=== PATIENT | male | born 1955 | race Caucasian/White ===

== ENCOUNTER 2020-07-28 11:12 | Emergency (ER) | payer OTHER ==
--- NOTE | 2020-07-28 12:05 | EDM.PDOC ---
ED HPI GENERAL MEDICAL PROBLEM - General Chief Complaint: General Stated Complaint: COVID SYMPTOMS / EMPHYSEMA Time Seen by Provider: 07/28/20 11:15 Source of Information: Reports: Patient History Limitations: Reports: No Limitations - History of Present Illness INITIAL COMMENTS - FREE TEXT/NARRATIVE: Patient is a 64 y/o male who presents for COVID testing. He started having f zunilda last night (101), chills, sweats, fatigue, and cough. He has been able to keep things down and denies any N/V/D. No exposure to anyone with COVID that he knows of. ED ROS GENERAL - Review of Systems Review Of Systems: See Below Constitutional: Reports: Fever, Chills, Fatigue, Night Sweats HEENT: Reports: No Symptoms Respiratory: Reports: Shortness of Breath, Cough Cardiovascular: Reports: No Symptoms Endocrine: Reports: No Symptoms GI/Abdominal: Reports: No Symptoms : Reports: No Symptoms Skin: Reports: No Symptoms Neurological: Reports: No Symptoms ED EXAM, GENERAL - Physical Exam Exam: See Below Exam Limited By: No Limitations General Appearance: Alert, No Apparent Distress Nose: Normal Inspection, Normal Mucosa, No Blood Head: Atraumatic, Normocephalic Neck: Normal Inspection Respiratory/Chest: No Respiratory Distress, No Accessory Muscle Use Neurological: Alert, Oriented, Normal Cognition, Normal Gait Psychiatric: Normal Affect, Normal Mood Skin Exam: Warm, Dry, Intact, Normal Color, No Rash Course - Orders/Labs/Meds Orders: Active Orders 24 hr Category Date Time Status CORONAVIRUS COVID-19 RAPID [MOLEC] Stat Lab 07/28/20 11:20 Ordered Departure - Departure Time of Disposition: 12:05 Disposition: Home, Self-Care 01 Condition: Good Clinical Impression: Fever Qualifiers: Fever type: unspecified Qualified Code(s): R50.9 - Fever, unspecified - Discharge Information *PRESCRIPTION DRUG MONITORING PROGRAM REVIEWED*: Not Applicable *COPY OF PRESCRIPTION DRUG MONITORING REPORT IN PATIENT YAMIA: Not Applicable - My Orders Last 24 Hours: My Active Orders 07/28/20 11:20 CORONAVIRUS COVID-19 RAPID [MOLEC] Stat - Assessment/Plan Last 24 Hours: My Active Orders 07/28/20 11:20 CORONAVIRUS COVID-19 RAPID [MOLEC] Stat Plan: Patient refusing any additional work up after finding out COVID test was negative. I saw patient out in the parking lot initially with nurse and didn't do a full exam. Patient wants to go home and doesn't want to be seen. I encouraged patient to come back for fever >102, unable to tolerate fluids, difficulty breathing/swallowing, and/or persistent/worsening symptoms. Patient doesn't appear SOB or in any distress.
== END 2020-07-28 11:50 | disposition home or self-care (01) ==
LOC: LB.ED 11:12
DX: R50.9 Fever, unspecified (principal); R53.83 Other fatigue; R06.02 Shortness of breath; R05 Cough; Z20.828 Contact with and (suspected) exposure to other viral communicable diseases
CPT/HCPCS: 99283; U0002

== ENCOUNTER 2024-01-22 14:14 | Inpatient (IN) | payer OTHER ==
[2024-01-22] MEDS ORDERED: Sodium Chloride 0.9% 10 ML Syringe FLUSH PRN (14:32)
[2024-01-22 15:05] LABS: HEMOGLOBIN 7.4 g/dL (13.0-18.0); MEAN CORPUSCULAR HGB CONC 33.6 g/dL (31.0-35.0); MEAN PLATELET VOLUME 9.7 fL (6.0-10.0); RED BLOOD CELL COUNT 2.47 M/uL (4.50-6.50); RED CELL DISTRIBUTION WIDTH 13.7 % (11.0-16.0); WHITE BLOOD CELL COUNT,WBC 18.7 K/uL (4.0-11.0)
[2024-01-22] MEDS: LORazepam 2 MG/ML SDV IVPUSH ONE ×2 (15:21→15:24)
[2024-01-22] MEDS: Morphine 4 MG/ML VIAL IVPUSH ONE ×2 (15:22→15:51)
[2024-01-22 15:33] LABS: A/G RATIO 0.4 (0.8-2.0); ALBUMIN 0.8 g/dL (3.4-5.0); ALKALINE PHOSPHATASE 27 U/L (46-116); ASPARTATE AMNIOTRANSFERASE,AST 7 U/L (15-37); BILIRUBIN TOTAL 0.5 mg/dL (0.0-1.0); BLOOD UREA NITROGEN,BUN 19 mg/dL (8-26); BUN/CREATININE RATIO 15.7 (6-25); CREATININE 1.21 mg/dL (0.70-1.30); ESTIMATED GFR 66 mL/min (>60); GLUCOSE RANDOM 52 mg/dL (74-100); PHOSPHORUS 1.7 mg/dL (2.5-4.9); PRO B-TYPE NATRIUR PEPT,BNPPRO 2917 pg/mL (0-125); PROTEIN TOTAL,TP 2.7 g/dL (6.4-8.2); SODIUM,NA 149 mmol/L (136-145); TROPONIN I HIGH SENSITIVITY 10.2 pg/ml (<=60.4)
[2024-01-22] MEDS: Vancomycin 1 GM in Sodium Chloride 0.9% 100 ML IV ONE (15:41)
[2024-01-22] MEDS: Albuterol 0.083% 2.5 MG/3 ML Neb Soln ONE (15:47)
[2024-01-22] MEDS: Albuterol 0.083% 2.5 MG/3 ML Neb Soln NEB ONE ×2 (15:47→15:51)
[2024-01-22] MEDS: Morphine 4 MG/ML VIAL ONE (16:10)
[2024-01-22] MEDS: Heparin Sodium/D5W 25,000 UNITS/500 ML BAG IV SCH (16:14)
[2024-01-22 16:22] LABS: BASE EXCESS ARTERIAL -8.2 (-2-2); BICARBONATE,ARTERIAL 16.5 mmol/L (22-26); O2 SATURATION ARTERIAL 97.7 % (95-98); PCO2 ARTERIAL 26.1 mmHg (35-45); PO2 ARTERIAL 95.9 mmHg (80-105)
[2024-01-22] MEDS: methylPREDNISolone Sodium Succinate 125 MG/2 ML SDV IVPUSH ONE (16:29)
[2024-01-22 16:32] LABS: LACTIC ACID 7.8 mmol/L (0.4-2.0)
[2024-01-22] MEDS: Heparin Sodium/D5W 500 ML ONE (16:35)
[2024-01-22] MEDS: Heparin Sodium 1,000 Units/ML 10 ML MDV ONE (16:35)
[2024-01-22] MEDS: methylPREDNISolone Sodium Succinate 125 MG/2 ML SDV ONE (16:36)
[2024-01-22] MEDS: Piperacillin/Tazobactam 4.5 GM in Sodium Chloride 0.9% 100 ML IV ONE (16:41)
[2024-01-22] MEDS: Budesonide 0.5 MG/2 ML Neb Susp NEB ONE (16:43)
[2024-01-22 16:46] LABS: CHLORIDE,CL 121 mmol/L (98-107); POTASSIUM,K 1.6 mmol/L (3.5-5.1)
[2024-01-22 16:49] LABS: ANION GAP 20.6 mmol/L (5.0-15.0)
[2024-01-22] MEDS: Potassium Chloride Riders 10 MEQ in Premix Bag 1 BAG IV ONE ×3 (17:15→19:25)
[2024-01-22] MEDS: Iopamidol 612 MG/ML 100 ML Bottle IV SCH (17:18)
[2024-01-22] MEDS: Sodium Chloride 0.9% 50 ML SDV FLUSH ONE (17:18)
[2024-01-22] MEDS: Potassium Chloride Riders 50 ML ONE ×3 (17:34→19:29)
[2024-01-22] MEDS: Budesonide 0.5 MG/2 ML Neb Susp ONE (17:34)
[2024-01-22 17:41] LABS: INFLUENZA A NAA NEGATIVE (NEGATIVE); INFLUENZA B NAA NEGATIVE (NEGATIVE); RESPIRATORY SYNCYTIAL VIR NAA NEGATIVE (NEGATIVE)
[2024-01-22 17:43] LABS: CORONAVIRUS COVID-19 NAA NEGATIVE (NEGATIVE)
[2024-01-22] MEDS ORDERED: Albuterol/Ipratropium 3.0-0.5 MG/3 ML Neb Soln NEB SCH (17:45)
[2024-01-22] MEDS: Albuterol/Ipratropium 3.0-0.5 MG/3 ML Neb Soln NEB SCH (17:47)
[2024-01-22] MEDS: Albuterol/Ipratropium 3.0-0.5 MG/3 ML Neb Soln ONE (18:11)
[2024-01-22] MEDS: Sodium Chloride 0.9% 1,000 ML IV SCH (18:17)
[2024-01-22] MEDS: Ketorolac 30 MG/ML SDV IM ONE (18:23)
[2024-01-22] MEDS: Ketorolac 30 MG/ML SDV ONE (18:26)
[2024-01-22 18:35] LABS: CALCIUM < 5.0 mg/dL (8.5-10.1)
[2024-01-22 18:36] LABS: ALANINE AMINOTRANSFERASE,ALT < 6 U/L (12-78)
[2024-01-22 18:41] LABS: MAGNESIUM 0.5 mg/dL (1.8-2.4)
[2024-01-22 18:52] LABS: AMPHETAMINES SCREEN, URINE NEGATIVE (NEGATIVE); BARBITURATE SCREEN,URINE NEGATIVE (NEGATIVE); BENZODIAZEPINES SCREEN,URINE NEGATIVE (NEGATIVE); METHADONE SCREEN, URINE NEGATIVE (NEGATIVE); METHAMPHETAMINES SCREEN, URINE NEGATIVE (NEGATIVE); OXYCODONE SCREEN,URINE NEGATIVE (NEGATIVE); THC SCREEN,URINE 50 NG/ML POSITIVE (NEGATIVE)
[2024-01-22] MEDS: NS with KCl 40mEq 1,000 ML IV SCH (20:26)
[2024-01-22 21:14] LABS: ANION GAP 19.9 mmol/L (5.0-15.0); CALCIUM 7.7 mg/dL (8.5-10.1); CARBON DIOXIDE,CO2 20.5 mmol/L (21.0-32.0); POTASSIUM,K 4.4 mmol/L (3.5-5.1)
[2024-01-22 21:22] LABS: EST CRCL DRUG DOSING (CG) 19.1 mL/min
[2024-01-22 21:24] LABS: CREATININE 3.68 mg/dL (0.70-1.30)
[2024-01-22] MEDS: Albuterol 0.083% 2.5 MG/3 ML Neb Soln NEB SCH (21:45)
[2024-01-22] MEDS ORDERED: Norepinephrine 4 MG in Dextrose 5% in Water 246 ML IV SCH (23:45)
[2024-01-23] MEDS ORDERED: Norepinephrine 4 MG in Dextrose 5% in Water 246 ML IV SCH ×2 (00:07→02:00)
[2024-01-23] MEDS: Norepinephrine 4 MG in Dextrose 5% in Water 246 ML IV SCH (00:07)
[2024-01-23] MEDS: Piperacillin/Tazobactam 4.5 GM in Sodium Chloride 0.9% 100 ML IV SCH (04:40)
[2024-01-23 09:22] LABS: HEMATOCRIT 33.8 % (40.0-54.0); HEMOGLOBIN 11.4 g/dL (13.0-18.0); MEAN CORPUSCULAR HEMOGLOBIN 29.4 pg (27.0-32.0); MEAN CORPUSCULAR HGB CONC 33.7 g/dL (31.0-35.0); MEAN PLATELET VOLUME 10.2 fL (6.0-10.0); RED BLOOD CELL COUNT 3.88 M/uL (4.50-6.50); RED CELL DISTRIBUTION WIDTH 14.4 % (11.0-16.0)
[2024-01-23 09:24] LABS: WHITE BLOOD CELL COUNT,WBC 22.8 K/uL (4.0-11.0)
[2024-01-23 09:34] LABS: ANION GAP 15.1 mmol/L (5.0-15.0); BUN/CREATININE RATIO 17.9 (6-25); CALCIUM 7.7 mg/dL (8.5-10.1); CARBON DIOXIDE,CO2 22.4 mmol/L (21.0-32.0); CREATININE 1.95 mg/dL (0.70-1.30); EST CRCL DRUG DOSING (CG) 34.84 mL/min; MAGNESIUM 2.7 mg/dL (1.8-2.4); POTASSIUM,K 4.5 mmol/L (3.5-5.1); TROPONIN I HIGH SENSITIVITY 37.8 pg/ml (<=60.4)
[2024-01-23 10:01] LABS: PHOSPHORUS 4.1 mg/dL (2.5-4.9)
[2024-01-23 15:28] LABS: HEMATOCRIT 32.8 % (40.0-54.0); HEMOGLOBIN 11.1 g/dL (13.0-18.0); MEAN CORPUSCULAR HEMOGLOBIN 29.5 pg (27.0-32.0); MEAN CORPUSCULAR HGB CONC 33.8 g/dL (31.0-35.0); MEAN PLATELET VOLUME 10.2 fL (6.0-10.0); RED BLOOD CELL COUNT 3.76 M/uL (4.50-6.50); RED CELL DISTRIBUTION WIDTH 14.4 % (11.0-16.0); WHITE BLOOD CELL COUNT,WBC 18.3 K/uL (4.0-11.0)
[2024-01-23 15:44] LABS: ANION GAP 13.3 mmol/L (5.0-15.0); BUN/CREATININE RATIO 18.7 (6-25); CALCIUM 7.9 mg/dL (8.5-10.1); CARBON DIOXIDE,CO2 22.6 mmol/L (21.0-32.0); CREATININE 1.66 mg/dL (0.70-1.30); EST CRCL DRUG DOSING (CG) 40.93 mL/min; POTASSIUM,K 3.9 mmol/L (3.5-5.1)
[2024-01-23] MEDS: Ketorolac 30 MG/ML SDV IVPUSH ONE (23:15)
[2024-01-24] MEDS: Omeprazole 20 MG Cap.CR PO SCH (07:51)
[2024-01-24 07:59] LABS: HEMATOCRIT 33.1 % (40.0-54.0); HEMOGLOBIN 11.1 g/dL (13.0-18.0); MEAN CORPUSCULAR HGB CONC 33.5 g/dL (31.0-35.0); MEAN PLATELET VOLUME 10.5 fL (6.0-10.0); RED BLOOD CELL COUNT 3.83 M/uL (4.50-6.50); RED CELL DISTRIBUTION WIDTH 14.4 % (11.0-16.0); WHITE BLOOD CELL COUNT,WBC 18.3 K/uL (4.0-11.0)
[2024-01-24 08:05] LABS: ANION GAP 16.2 mmol/L (5.0-15.0); CALCIUM 7.6 mg/dL (8.5-10.1); CARBON DIOXIDE,CO2 19.7 mmol/L (21.0-32.0); CREATININE 1.2 mg/dL (0.70-1.30); EST CRCL DRUG DOSING (CG) 56.61 mL/min; POTASSIUM,K 3.9 mmol/L (3.5-5.1)
[2024-01-24] MEDS ORDERED: VANCOmycin 1.5 GM/300 ML 300 ML IV SCH (12:00)
[2024-01-24] MEDS: Simvastatin 40 MG Tab PO SCH (20:00)
[2024-01-24] MEDS: Simvastatin 20 MG Tab PO SCH (22:48)
[2024-01-25] MEDS ORDERED: Ketorolac 10 MG Tab PO PRN (00:26)
[2024-01-25] MEDS: Ketorolac 10 MG Tab ONE (00:53)
[2024-01-25 09:12] LABS: HEMATOCRIT 36.2 % (40.0-54.0); HEMOGLOBIN 12.2 g/dL (13.0-18.0); MEAN CORPUSCULAR HEMOGLOBIN 29.3 pg (27.0-32.0); MEAN CORPUSCULAR HGB CONC 33.7 g/dL (31.0-35.0); MEAN PLATELET VOLUME 10.7 fL (6.0-10.0); RED BLOOD CELL COUNT 4.17 M/uL (4.50-6.50); RED CELL DISTRIBUTION WIDTH 14.6 % (11.0-16.0); WHITE BLOOD CELL COUNT,WBC 16.7 K/uL (4.0-11.0)
[2024-01-25] MEDS ORDERED: Albuterol 0.083% 2.5 MG/3 ML Neb Soln NEB PRN (09:26)
== END 2024-01-25 12:55 | disposition home or self-care (01) | DRG 871 ==
LOC: LB.ED 14:14 → UNDOADMIN 21:35 → LB.MS 21:35 → UNDOADMIN 21:39 → EEVIPCON 21:39 → LB.MS 21:39 → UNDOADMIN 01-24 11:15 → LB.MS 01-24 11:15
PROVIDERS: ADMIT Surgery; ATTEND Surgery
PROC: 3E03329 Introduction of Other Anti-infective into Peripheral Vein, Percutaneous Approach (ICD-10-PCS; principal; 2024-01-22)
PROC: 5A09357 Assistance with Respiratory Ventilation, Less than 24 Consecutive Hours, Continuous Positive Airway Pressure (ICD-10-PCS; 2024-01-22)
PROC: 3E033XZ Introduction of Vasopressor into Peripheral Vein, Percutaneous Approach (ICD-10-PCS; 2024-01-22)
PROC: 4A033R1 Measurement of Arterial Saturation, Peripheral, Percutaneous Approach (ICD-10-PCS; 2024-01-22)
DX: A41.9 Sepsis, unspecified organism (principal); J18.9 Pneumonia, unspecified organism; I95.89 Other hypotension; J69.0 Pneumonitis due to inhalation of food and vomit; R65.21 Severe sepsis with septic shock; J96.91 Respiratory failure, unspecified with hypoxia; J44.1 Chronic obstructive pulmonary disease with (acute) exacerbation; N17.9 Acute kidney failure, unspecified; J44.0 Chronic obstructive pulmonary disease with (acute) lower respiratory infection; E87.6 Hypokalemia; E83.42 Hypomagnesemia; E83.39 Other disorders of phosphorus metabolism; F12.10 Cannabis abuse, uncomplicated; E78.00 Pure hypercholesterolemia, unspecified; K21.9 Gastro-esophageal reflux disease without esophagitis; R45.1 Restlessness and agitation; F19.90 Other psychoactive substance use, unspecified, uncomplicated; Z79.899 Other long term (current) drug therapy; Z87.891 Personal history of nicotine dependence
CPT/HCPCS: 0241U; 36415; 36600; 51702; 71045; 71260; 74177; 80048; 80053; 80202; 80307; 82803; 82947; 83605; 83735; 83880; 84100; 84484; 85027; 85379; 85730; 87040; 93005; 94640; 94660; 96365; 96366; 96367; 96368; 96372; 96375; 96376; 99285; 99223; 99232; 99238; A9270-GY; C1758; J1644; J1885; J2060; J2270; J2543; J2930; J3370; J3475; J3480; J3490; J7030; J7050; J7060; J7620; Q9967

== ENCOUNTER 2024-01-30 09:34 | Emergency (ER) | payer OTHER ==
[2024-01-30] MEDS: Aspirin 81 MG Tab.Chew PO ONE (09:40)
[2024-01-30] MEDS ORDERED: Naloxone 2 MG/2 ML Syringe IVPUSH PRN (09:47)
[2024-01-30] MEDS ORDERED: fentaNYL 100 MCG/2 ML SDV IVPUSH PRN (09:47)
[2024-01-30] MEDS: Diltiazem 25 MG/5 ML SDV IVPUSH ONE (09:53)
[2024-01-30] MEDS: Diltiazem 50 MG/10 ML SDV IVPUSH ONE (09:57)
[2024-01-30 09:59] LABS: HEMATOCRIT 40.9 % (40.0-54.0); HEMOGLOBIN 13.8 g/dL (13.0-18.0); MEAN CORPUSCULAR HEMOGLOBIN 29.4 pg (27.0-32.0); MEAN CORPUSCULAR HGB CONC 33.7 g/dL (31.0-35.0); MEAN CORPUSCULAR VOLUME 87 fL (76-96); MEAN PLATELET VOLUME 9.3 fL (6.0-10.0); RED CELL DISTRIBUTION WIDTH 14.1 % (11.0-16.0); WHITE BLOOD CELL COUNT,WBC 16.3 K/uL (4.0-11.0)
[2024-01-30] MEDS: Sodium Chloride 0.9% 1,000 ML IV ONE ×2 (10:00→11:55)
[2024-01-30 10:17] LABS: INR 1.1 (1.0-3.5); PTT,PARTIAL THROMBOPLSTIN TIME 28.8 SECONDS (24.4-33.2)
[2024-01-30] MEDS: Diltiazem 100 MG in Sodium Chloride 0.9% 100 ML IV SCH (10:23)
[2024-01-30 10:24] LABS: A/G RATIO 0.4 (0.8-2.0); ALBUMIN 2.3 g/dL (3.4-5.0); ANION GAP 13.5 mmol/L (5.0-15.0); BILIRUBIN TOTAL 0.4 mg/dL (0.0-1.0); BUN/CREATININE RATIO 11.3 (6-25); CALCIUM 8.8 mg/dL (8.5-10.1); CARBON DIOXIDE,CO2 25.2 mmol/L (21.0-32.0); CREATININE 1.06 mg/dL (0.70-1.30); EST CRCL DRUG DOSING (CG) 66.32 mL/min; POTASSIUM,K 3.7 mmol/L (3.5-5.1); PROTEIN TOTAL,TP 7.6 g/dL (6.4-8.2)
[2024-01-30 10:29] LABS: PLATELET COUNT,PLT 734 K/uL (150-400)
[2024-01-30 10:30] LABS: PROTHROMBIN TIME 11.4 sec (9.0-11.5)
[2024-01-30] MEDS: Cefepime 1 GM in Sodium Chloride 0.9% 50 ML IV ONE (10:50)
[2024-01-30] MEDS: Diltiazem 120 MG Cap.CD PO ONE (10:54)
[2024-01-30] MEDS: Enoxaparin 80 MG/0.8 ML Syringe SUBCUT SCH (11:01)
[2024-01-30 11:02] LABS: GIANT PLATELETS FEW; PLATELET COUNT ESTIMATE INCREASED
[2024-01-30] MEDS: Sodium Chloride 0.9% 50 ML SDV FLUSH ONE (11:34)
[2024-01-30] MEDS: Iopamidol 755 Mg/ML 100 ML Bottle IV SCH (11:34)
[2024-01-30] MEDS: Lactated Ringers 1,000 ML IV SCH (13:32)
[2024-01-30 15:01] LABS: APPEARANCE,URINE CLEAR (CLEAR); BILIRUBIN,URINE NEGATIVE (NEGATIVE); COLOR,URINE YELLOW; GLUCOSE,URINE NEGATIVE (NEGATIVE); KETONES,URINE NEGATIVE (NEGATIVE); LEUKOCYTE ESTERASE,URINE NEGATIVE (NEGATIVE); NITRITE,URINE NEGATIVE (NEGATIVE); OCCULT BLOOD,URINE NEGATIVE (NEGATIVE); PH,URINE 5.5 (5.0-8.0); PROTEIN,URINE NEGATIVE (NEGATIVE); UROBILINOGEN,URINE 0.2 E.U./dL (0.2-1.0)
[2024-01-30 15:07] LABS: AMPHETAMINES SCREEN, URINE NEGATIVE (NEGATIVE); BARBITURATE SCREEN,URINE NEGATIVE (NEGATIVE); BENZODIAZEPINES SCREEN,URINE NEGATIVE (NEGATIVE); METHADONE SCREEN, URINE NEGATIVE (NEGATIVE); METHAMPHETAMINES SCREEN, URINE NEGATIVE (NEGATIVE); OXYCODONE SCREEN,URINE NEGATIVE (NEGATIVE); THC SCREEN,URINE 50 NG/ML POSITIVE (NEGATIVE)
[2024-01-30 15:08] LABS: RBC,URINE NOT SEEN /HPF; WBC,URINE NOT SEEN /HPF
[2024-01-30] MEDS: metroNIDAZOLE/Normal Saline 500 MG in Premix Bag 1 BAG IV ONE (16:33)
[2024-01-30] MEDS: VANCOmycin 1.25 GM/250 ML 1.25 GM in Premix Bag 1 BAG IV SCH (17:14)
[2024-01-30] MEDS ORDERED: Sodium Chloride 0.9% 10 ML Syringe FLUSH PRN (19:13)
== END 2024-01-30 21:13 ==
LOC: LB.ED 09:34
DX: J18.9 Pneumonia, unspecified organism (principal); J90 Pleural effusion, not elsewhere classified; K21.9 Gastro-esophageal reflux disease without esophagitis; J44.9 Chronic obstructive pulmonary disease, unspecified; E78.00 Pure hypercholesterolemia, unspecified; Z79.899 Other long term (current) drug therapy
CPT/HCPCS: 36415; 71045; 71260; 80053; 80307; 81001; 83605; 84145; 84484; 85025; 85379; 85610; 85730; 93005; 96365; 96367; 96368; 96372; 96376; 99285-25; A9270-GY; J0692; J1650; J1836; J3370; J3490; J7030; J7120; Q9967

== ENCOUNTER 2024-05-18 13:41 | Emergency (ER) | payer OTHER, MEDICARE ==
[2024-05-18] MEDS: Diphtheria,Pertussis(Acell),Tetanus Vaccine 0.5 ML Syringe IM ONE (14:01)
[2024-05-20] MEDS: Ondansetron 4 MG/2 ML SDV ONE (12:59)
== END 2024-05-18 14:20 | disposition home or self-care (01) ==
LOC: LB.ED 13:41
DX: S91.331A Puncture wound without foreign body, right foot, initial encounter (principal); E78.00 Pure hypercholesterolemia, unspecified; J44.9 Chronic obstructive pulmonary disease, unspecified; K21.9 Gastro-esophageal reflux disease without esophagitis; Z23 Encounter for immunization; Z79.899 Other long term (current) drug therapy; W22.8XXA Striking against or struck by other objects, initial encounter
CPT/HCPCS: 90471; 90715; 99283; 99283-25